=== PATIENT | male | born 2000 | race Caucasian/White ===

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

== ENCOUNTER 2020-08-06 08:00 | Emergency (ER) | payer SELFPAY ==
[2020-08-06 08:12] VITALS: BP 142/56
--- NOTE | 2020-08-06 10:18 | Emergency Department Report ---
Chief Complaint: Urogenital-Male Stated Complaint: GENITALS PAIN Time Seen by Provider: 08/06/20 10:09 - HPI History of Present Illness: This is a 20-year-old male nontoxic, well in appearance with no signs of distress presents to the ED for STD check. Patient stated that his partner called and said has STD. Patient stated he is asymptotic. Denies any penile discharge, testicular pain, or swelling. Patient denies any urinary symptoms. Patient denies any fever, chills, headache, nausea, vomiting, chest pain or shortness of breathe. denies any other symptoms or complaints. Denies any allergies or PMH. - Exam Vital Signs: Vital Signs 08/06/20 08:10 Temperature 98 F Pulse Rate 80 Respiratory 16 Rate Blood Pressure 142/56 [Right] O2 Sat by Pulse 97 Oximetry Physical Exam: no penile discharge. no urinary symptoms. No flank pain. no abdominal pain. no lesions. normal physical exam. MSE screening note: Focused history and physical exam performed. Due to findings the following was ordered: ED Medical Decision Making - Medical Decision Making This is a 20-year-old male that presents with nonmedical emergency complaint. Patient is just requested for a STD test. Patient denies any symptoms. I gave patient many different referrals to follow-up with STD concerns. Patient was instructed to Follow-up with a primary care doctor in 3-5 days or if symptoms worsen and continue return to emergency room as soon as possible. At time of discharge, the patient does not seem toxic or ill in appearance. No acute signs of distress noted. Patient agrees to discharge treatment plan of care. No further questions noted by the patient. ED Disposition for MSE Clinical Impression: Possible exposure to STD Disposition: Z-07 MED SCREENING EXAM-LEFT Is pt being admited?: No Does the pt Need Aspirin: No Condition: Stable Instructions: Safe Sex Additional Instructions: Follow-up with a primary care doctor as soon as possible or if symptoms worsen and continue return to the emergency department as soon as possible. Referrals: PRIMARY CARE, [Primary Care Provider] - BELLA MORALEZ MD [Staff Physician] - SHIVAM Time of Disposition: 10:19
== END 2020-08-06 10:11 | disposition left against medical advice (07) ==
LOC: ED 08:00
DX: N50.89 Other specified disorders of the male genital organs (principal); Z53.21 Procedure and treatment not carried out due to patient leaving prior to being seen by health care provider